=== PATIENT | female | born 1990 | race Asian ===

== ENCOUNTER 2019-01-31 21:03 | Emergency (ER) | payer SELFPAY ==
[~2019-01-31] VITALS: Ht 167.6 cm; Wt 71.7 kg
--- NOTE | 2019-01-31 21:41 | NUR ---
Patient discharged to home in stable conditon. Written and verbal after care instructions given. Patient verbalizes understanding of instructions. Walked out of ER with no distress noted.
== END 2019-01-31 21:45 | disposition home or self-care (01) ==
LOC: ER 21:08
DX: S83.8X1A Sprain of other specified parts of right knee, initial encounter (principal); W51.XXXA Accidental striking against or bumped into by another person, initial encounter; Y93.89 Activity, other specified; Y92.89 Other specified places as the place of occurrence of the external cause; Y99.8 Other external cause status
CPT/HCPCS: A4663